=== PATIENT | male | born 1995 | race Two or more races ===

== ENCOUNTER 2019-11-14 10:03 | Emergency (ER) | payer OTHER ==
[~2019-11-14] VITALS: Ht 177.8 cm; Wt 90.7 kg
[2019-11-14 10:17] VITALS: BP 123/88
== END 2019-11-14 10:28 | disposition home or self-care (01) ==
LOC: ER 10:15
DX: K60.2 Anal fissure, unspecified (principal); K62.5 Hemorrhage of anus and rectum

== ENCOUNTER 2020-11-05 12:23 | Emergency (ER) | payer OTHER ==
[~2020-11-05] VITALS: Ht 180.3 cm; Wt 97.5 kg
[2020-11-05 12:38] VITALS: BP 123/80
--- NOTE | 2020-11-05 12:40 | NUR ---
the patient presents to er for rectal bleeding noted started yesterday. feeling weak today.. denies pain. in room air and denies sob. respiration regular and unlabored. will continue to monitor the patient.
[2020-11-05 13:29] LABS: BASOPHILS % (AUTO) 0.5 % (0.0-2.0); EOSINOPHILS % (AUTO) 0.9 % (0.0-6.0); HEMATOCRIT 45 % (39-51); LYMPHOCYTES # (AUTO) 1.9 /CMM (0.8-4.8); LYMPHOCYTES % (AUTO) 28.1 % (20.0-44.0); MEAN CORPUSCULAR HGB CONC 33 g/dl (31.0-36.0); MEAN CORPUSCULAR VOLUME 89 fL (80-96); MONOCYTES # (AUTO) 0.7 /CMM (0.1-1.30); MONOCYTES % (AUTO) 11.1 % (2.0-12.0); NEUTROPHILS % (AUTO) 59.4 % (43.0-81.0); PLATELET COUNT (AUTO) 218 /CMM (150-450); RED BLOOD CELL COUNT(AUTO) 5.06 MIL/uL (4.5-6.0); WHITE BLOOD COUNT (AUTO) 6.7 K/uL (4.3-11.0)
[2020-11-05 13:37] LABS: CALCIUM, SERUM 8.9 mg/dL (8.5-10.1); POTASSIUM 4.1 mmol/L (3.5-5.1)
[2020-11-05 13:44] LABS: ALBUMIN 4.3 g/dL (3.4-5.0); BILIRUBIN,TOTAL 0.5 mg/dL (0.2-1.0); TOTAL PROTEIN, SERUM 7.8 g/dL (6.4-8.2)
== END 2020-11-05 15:14 | disposition home or self-care (01) ==
LOC: ER 12:33
DX: K62.5 Hemorrhage of anus and rectum (principal)
CPT/HCPCS: 36415; 80053-TC; 85025-TC; 85610-TC; 85730-TC

== ENCOUNTER 2021-08-09 14:29 | Emergency (ER) | payer OTHER ==
[~2021-08-09] VITALS: Ht 180.3 cm; Wt 81.6 kg
--- NOTE | 2021-08-09 14:37 | NUR ---
BIBS C/O ANAL PAIN DUE TO HEMORRHOIDS STARTED YESTERDAT 10/10 PAIN SCALE TRIED THE CREAM AND IT STILL HURTS.
[2021-08-09] MEDS ORDERED: LIDOCAINE 1% INJ 50 ML MDV IJ ONE (15:44)
[2021-08-09] MEDS ORDERED: DOCU-141 PO (16:18)
[2021-08-09] MEDS ORDERED: HYDR25SU33 RC (16:18)
[2021-08-09 16:40] VITALS: BP 119/80
== END 2021-08-09 16:42 | disposition home or self-care (01) ==
LOC: ER 14:50
DX: K64.5 Perianal venous thrombosis (principal); K59.00 Constipation, unspecified
CPT/HCPCS: 46083; 99283; J3490

== ENCOUNTER 2024-06-29 12:40 | Emergency (ER) | payer OTHER ==
[~2024-06-29] VITALS: Ht 177.8 cm; Wt 93.0 kg
[~2024-06-29 12:40] MED LIST: DOCU-141 PO; HYDR25SU33 RC
[2024-06-29 13:12] VITALS: BP 134/72; TEMP 97.9
[2024-06-29] MEDS: KETOROLAC TROMETHAMINE 15 MG/ML VIAL IM ONE (14:30)
[2024-06-29] MEDS: LIDOCAINE 5% (PATCH) 1 EA PATCH TP SCH (14:30)
[2024-06-29] MEDS ORDERED: CYCL10TA9 PO (14:34)
[2024-06-29] MEDS ORDERED: LIDO30AD10 TP (14:34)
[2024-06-29] MEDS ORDERED: KETO10TA2 PO (14:34)
[2024-06-29] MEDS ORDERED: LIDOCAINE 5% (PATCH) 1 EA PATCH TP ONE (14:45)
[2024-06-29] MEDS ORDERED: KETOROLAC TROMETHAMINE 15 MG/ML VIAL ONE (14:45)
[2024-06-29 15:22] VITALS: O2SAT 99
== END 2024-06-29 15:22 | disposition home or self-care (01) ==
LOC: ER 12:40
DX: M54.2 Cervicalgia (principal); R07.89 Other chest pain; Z87.19 Personal history of other diseases of the digestive system; V43.62XA Car passenger injured in collision with other type car in traffic accident, initial encounter; Y93.89 Activity, other specified; Y92.488 Other paved roadways as the place of occurrence of the external cause; Y99.8 Other external cause status
CPT/HCPCS: 99283; 96372; J1885

== ENCOUNTER 2025-05-21 09:50 | Emergency (ER) | payer MEDICAID, OTHER ==
[~2025-05-21] VITALS: Ht 177.8 cm; Wt 86.2 kg
[~2025-05-21 09:50] MED LIST changes: +CYCL10TA9 PO; +KETO10TA2 PO; +LIDO30AD10 TP
[2025-05-21] MEDS ORDERED: HYDROCODONE/APAP 5/325MG TABLET ONE (10:20)
[2025-05-21] MEDS ORDERED: CYCLOBENZAPRINE 10 MG TABLET ONE (10:20)
[2025-05-21] MEDS ORDERED: LIDOCAINE 5% (PATCH) 1 EA PATCH TP ONE (10:32)
[2025-05-21] MEDS: HYDROCODONE/APAP 5/325MG TABLET PO ONE (10:35)
[2025-05-21] MEDS: CYCLOBENZAPRINE 10 MG TABLET PO ONE (10:35)
[2025-05-21] MEDS: LIDOCAINE 5% (PATCH) 1 EA PATCH TP STA (10:35)
[2025-05-21] MEDS ORDERED: LIDO30AD10 TP (11:14)
[2025-05-21] MEDS ORDERED: CYCL5TAB PO (11:14)
[2025-05-21] MEDS ORDERED: IBUP-1955 PO (11:14)
[2025-05-21 11:33] VITALS: BP 134/85; TEMP 98; O2SAT 100
== END 2025-05-21 12:06 | disposition home or self-care (01) ==
LOC: ER 09:54
DX: S02.2XXA Fracture of nasal bones, initial encounter for closed fracture (principal); S16.1XXA Strain of muscle, fascia and tendon at neck level, initial encounter; Z87.19 Personal history of other diseases of the digestive system; Y04.0XXA Assault by unarmed brawl or fight, initial encounter; Y93.89 Activity, other specified; Y92.89 Other specified places as the place of occurrence of the external cause; Y99.8 Other external cause status
CPT/HCPCS: 70450-TC; 70486-TC; 72125-TC